=== PATIENT | female | born 1975 | race Native Hawaiian/Other Pacific Islander ===

== ENCOUNTER 2018-06-16 06:33 | Outpatient (CLI) | payer BC | END 2018-06-16 19:51 | LOC: RAD 06:33 | DX: M79.605 Pain in left leg (principal) ==

== ENCOUNTER 2019-04-21 17:31 | Outpatient (CLI) | payer BC | END 2019-04-21 23:22 | disposition home or self-care (01) | LOC: RAD 17:31 | DX: M25.522 Pain in left elbow (principal) ==

== ENCOUNTER 2020-03-28 12:42 | Outpatient (CLI) | payer BC | END 2020-03-28 19:20 | disposition home or self-care (01) | LOC: RAD 12:42 | DX: M25.512 Pain in left shoulder (principal) ==